=== PATIENT | female | born 1930 | race Hispanic/Latino ===

== ENCOUNTER 2017-01-04 08:06 | Day surgery (SDC) | payer MEDICARE ==
[2016-12-30 12:42] VITALS: BMI 38.4
[2017-01-04 09:17] VITALS: RESP 20; TEMP 97.9; O2SAT 92
[2017-01-04 09:45] LABS: BASO # 0.01 K/mm3 (0.0-2.0); BASO % 0.1 % (0.0-3.0); EOS # 0.2 (0.0-0.7); GRAN # 5.64 (1.4-6.5); GRAN % 79.8 % (50.0-68.0); HEMATOCRIT 39.1 % (36.0-48.0); LYMPH # 0.6 (1.2-3.4); LYMPH % 8.8 % (22.0-35.0); MEAN CELL VOLUME 89.3 fl (80.0-105.0); MEAN CORPUSCULAR HEMOGLOBIN 27.4 pg (25.0-35.0); MEAN CORPUSCULAR HGB CONC 30.7 g/dl (31.0-37.0); MEAN PLATELET VOLUME 9.3 fl (7.0-11.0); MONO # 0.6 (0.1-0.6); MONO % 8.3 % (1.0-6.0); RED CELL DISTRIBUTION WIDTH 14.4 % (11.5-14.5); WHITE BLOOD COUNT 7.1 10^3/ul (4.5-11.0)
[2017-01-04 09:53] LABS: BLOOD UREA NITROGEN 14 mg/dL (7-21); CALCIUM 8.9 mg/dL (8.4-10.5); CARBON DIOXIDE 33 mmol/L (21-33); CHLORIDE 102 mmol/L (98-107); CHOLESTEROL 106 mg/dL (130-200); GFR AFRICAN-AMERICAN > 60; GLUCOSE,RANDOM 118 mg/dL (70-110); POTASSIUM 4.2 mmol/L (3.6-5.0); SODIUM 142 mmol/L (132-148)
[2017-01-04 10:00] LABS: INR 1.05 (0.93-1.08); PARTIAL THROMBOPLASTIN TIME 28.9 Seconds (23.7-30.8)
--- NOTE | 2017-01-04 11:34 | CARD ---
APPROVED REPORT EKG Measurement Heart [id number] <Conclusion> Sinus rhythm with premature atrial complexes Junctional ST depression, probably normal Borderline ECG
[2017-01-04] MEDS ORDERED: Lidocaine 2% Inj (20ml) ONE (14:48)
[2017-01-04] MEDS ORDERED: Midazolam 2 MG/2 ML VIAL ONE (15:16)
[2017-01-04] MEDS ORDERED: DiphenhydrAMINE 50 mg/ml Inj ONE (15:22)
[2017-01-04] MEDS: Adenosine 90 mg/30mL IV ONE ×3 (16:22→16:45)
[2017-01-04 18:55] VITALS: PULSE 78
[2017-01-04 19:34] VITALS: BP 154/76
--- NOTE | 2017-01-04 21:55 | PROCN ---
DATE OF STUDY: 01/04/2017 INDICATIONS: Ms. Charley Tavarez is an 86-year-old female with past medical history significant for hypertension, dyslipidemia, and COPD, who was referred to me for right heart catheterization for evaluation of severe pulmonary hypertension that was diagnosed on transthoracic echocardiogram. PROCEDURE PERFORMED: Right heart catheterization with hemodynamics and cardiac output. TECHNIQUES OF PROCEDURE: After obtaining informed consent, the patient was brought to the cardiac cath suite in post-absorptive non-sedated state. The patient was prepped and draped in the usual sterile fashion. A 2% lidocaine was used for infiltration of anesthesia. Using modified Seldinger technique, a 7-Malagasy sheath was introduced into the right femoral vein. Subsequently, under fluoroscopic guidance, pulmonary capillary wedge catheter was advanced with balloon inflated serially through the IVC into the RA, right ventricle, pulmonary artery, and wedge position. Hemodynamics and saturations were obtained. Subsequently, cardiac output and index were calculated using the thermodilution method. HEMODYNAMICS OF RIGHT HEART CATHETERIZATION: 1. Right atrial pressures 10/8/6 -- mean right atrial pressure is 6 mmHg. 2. Right ventricular pressure 42/2/7, right ventricular end-diastolic pressure was 7 mmHg with systolic pressure of 42. 3. Pulmonary artery pressures, systolic 42, diastolic 16 with a mean of 25 mmHg. 4. Pulmonary capillary wedge pressures, mean pulmonary capillary wedge pressure was 8 mmHg. Cardiac output using the thermodilution method was calculated to be 5.6 L/min with cardiac index of 2.8 L/min/m2. IMPRESSION: 1. Normal filling pressures. 2. Normal pulmonary pressures. 3. Normal cardiac output. RECOMMENDATIONS: The patient is to be followed by Dr. Coronado for her underlying COPD. No evidence of pulmonary arterial hypertension. Thank you Dr. Coronado for letting me participate in the care of your patient. Manish Nayak MD cc: Noble Coronado MD, [facility].
== END 2017-01-04 19:30 | disposition home or self-care (01) ==
LOC: CATH 08:06
PROVIDERS: ATTEND Internal Medicine Interventional Cardiology
DX: Z03.89 Encounter for observation for other suspected diseases and conditions ruled out (principal); J44.9 Chronic obstructive pulmonary disease, unspecified; I10 Essential (primary) hypertension; I38 Endocarditis, valve unspecified; F17.200 Nicotine dependence, unspecified, uncomplicated; R05 Cough; R06.00 Dyspnea, unspecified; E66.9 Obesity, unspecified; Z68.38 Body mass index [BMI] 38.0-38.9, adult
CPT/HCPCS: 36415; 80048; 80061; 85025; 85610; 85730; 86850; 86900; 93005; 93451; 99152; C1894; J0153; J1200; J1644; J2250; J3010; J7040